=== PATIENT | female | born 2000 | race Caucasian/White ===

== ENCOUNTER 2019-10-05 07:44 | Emergency (ER) | payer OTHER ==
[2019-10-05 07:56] VITALS: BP 136/98
--- NOTE | 2019-10-05 08:40 | ED Physician Documentation ---
History of Present Illness - Stated complaint Stated Complaint: LT BREAST PX - Chief complaint Chief Complaint: General - Additonal information Additional information: This is a 19-year-old female who presents with left-sided breast pain. She feels that her left breast is slightly larger than her right, and since around May she has had some mild discomfort in the breast. She recounts in the past she noticed she had some axillary swelling, and she was told by a provider who saw her that she thought she was anxious, and that she should use hot compresses and the swelling resolved. She denies any swollen lymph nodes that she is noticed in her body, she denies any nipple inversion, fever, no obvious overlying skin changes. [place] for the next week and told her to get checked out here in the meantime. No family history of breast cancer. Patient is sexually active with female partners only, denies any concern for . Review of Systems Constitutional: denies: Fever Skin: denies: Rash PD PAST MEDICAL HISTORY - Past Medical History Past Medical History: Yes Respiratory: Asthma - Past Surgical History Past Surgical History: Yes - Present Medications Home Medications: Ambulatory Orders Medication Instructions Recorded Confirmed Fluticasone 44 Mcg [Flovent] 1 puffs INH BID PRN 10/05/19 10/05/19 - Allergies Allergies/Adverse Reactions: Allergies Allergy/AdvReac Type Severity Reaction Status Date / Time No Known Drug Allergies Allergy Verified 10/05/19 07:56 - Social History Does the pt smoke?: No Smoking Status: Never smoker Does the pt drink ETOH?: No Does the pt have substance abuse?: No - Immunizations Immunizations are current?: Yes - POLST Patient has POLST: No PD ED PE NORMAL - Vitals Vital signs reviewed: Yes - General General: Alert and oriented X 3, No acute distress - HEENT HEENT: Atraumatic, PERRL - Neck Neck: Supple, no meningeal sign - Cardiac Cardiac: RRR - Respiratory Respiratory: No respiratory distress - Female Female : Other (Breast exam chaperoned by ONELIA Martínez. Breasts are normal in appearance, the left breast is may be slightly larger compared to right, but within the realms of normal variation. Nipples are also normal in appearance, there is no inversion. Palpation of the breast tissue reveals normal consistency for age, no obvious palpable masses, there is no discharge. There is no axillary lymphadenopathy.) - Derm Derm: Warm and dry - Extremities Extremities: No deformity - Neuro Neuro: Alert and oriented X 3 - Psych Psych: Normal mood, Normal affect Results - Vitals Vitals: Vital Signs - 24 hr 10/05/19 07:52 Temperature 36.8 C Heart Rate 97 Respiratory 18 Rate Blood Pressure 136/98 H O2 Saturation 100 Oxygen O2 Source Room air PD MEDICAL DECISION MAKING - ED course Complexity details: considered differential (Abscess, mastitis, breast cancer, breast mass, lymphadenopathy) ED course: Patient presents with breast pain for several months, it sounds like she was referred here from her primary care when they called to make an appoitment because they could not schedule her for an appointment this week. Her examination is actually quite normal, I do not see any signs of infection or abscess, I do not see any signs of infection or abscess, I do not palpate any lymphadenopathy, and I do not palpate any masses. Patient is very well- appearing, she has no symptoms to suggest overt malignancy at this time. Given the chronicity of her symptoms and her reassuring exam I discussed with patient and her father that she should follow-up with her primary care provider for consideration of further testing, likely ultrasound and her age. I also reviewed return precautions with any signs of infection, abscess, or other concerning symptoms. Patient and father verbalized understanding, and were discharged home in good condition. She has an appointment with her PCP within one week. Departure - Departure Disposition: 01 Home, Self Care Clinical Impression: Breast tenderness Condition: Good Follow-Up: Jesus Birmingham ARNP [Primary Care Provider] - Comments: You were seen today for breast tenderness. On my examination I do not see obvious signs of a large mass or swelling of your lymph nodes or infection at this time. A better test to evaluate the breast would be an ultrasound. Please follow-up with your primary care provider as scheduled, to discuss further testing including potential imaging such as ultrasound. If you are having significantly increasing pain, signs of infection such as redness, drainage from the breast, or other concerning symptoms, return to the emergency department. It is okay to try warm compresses, Tylenol and ibuprofen.
== END 2019-10-05 08:45 | disposition home or self-care (01) ==
LOC: ED 07:44
DX: N64.4 Mastodynia (principal)
CPT/HCPCS: 99281; 99282